=== PATIENT | female | born 1945 | race Caucasian/White ===

== ENCOUNTER → 2021-09-01 12:40 | Outpatient (CLI) | payer MEDICARE, SELFPAY ==
--- NOTE | 2021-09-01 | DI.MG.S_ITS ---
BILATERAL DIGITAL DIAGNOSTIC MAMMOGRAM 3D/2D: 09/01/2021 CLINICAL: Breast pain. Comparison is made to exams dated: 10/07/2014 mammogram, 03/21/2014 mammogram, and 03/12/2014 mammogram - [facility]. The tissue of both breasts is heterogeneously dense. This may lower the sensitivity of mammography. No significant new masses, calcifications, or other findings are seen in either breast. IMPRESSION: INCOMPLETE: NEEDS ADDITIONAL IMAGING EVALUATION There is no abnormality seen in the right breast to correspond with the nipple abnormality in the sub-areolar depth, however, ultrasound is recommended. There is no abnormality seen in the right axilla to correspond with the pain in the right axilla, however, ultrasound is recommended. Ultrasound will be performed immediately following the current exam. This exam was interpreted at Station ID: [id number]. NOTE: For mammograms, a report in lay terms will be sent to the patient. Approximately 15% of breast malignancies will not be visualized mammographically. In the management of a palpable breast mass, a negative mammogram must not discourage biopsy of a clinically suspicious lesion. Electronically Signed By: Christopher Rodriguez M.D. ddp/:09/01/2021 13:53:27 ACR BI-RADS Category 0: Incomplete [id number]
--- NOTE | 2021-09-01 | DI.RAD.S_ITS ---
PROCEDURE: XR DEXA AXIAL SKELETON INDICATIONS: Mastodynia COMPARISON: [facility], CR, DEXA AXIAL SKELETON, 03/12/2014, 9:21. FINDINGS: This blank DEXA report has been sent in error by the PACS system. The correct and complete report will be forthcoming in 1-2 days. Thank you for your patience and understanding. Dictated by: Lurdes Pradhan M.D. on 09/01/2021 at 16:20 Approved by: Lurdes Pradhan M.D. on 09/07/2021 at 14:01
--- NOTE | 2021-09-01 | DI.US.S_ITS ---
LIMITED ULTRASOUND OF RIGHT BREAST AND AXILLA: 09/01/2021 CLINICAL: Focal right breast and axilla pain. Comparison is made to exams dated: 09/01/2021 mammogram, 03/12/2014 mammogram, 07/23/2009 mammogram, and 05/03/2006 mammogram - [facility]. Real-time ultrasound of the right breast retroareolar and axilla regions was performed on the areas of interest. No discrete cystic or solid mass lesion identified in the areas of focal pain. IMPRESSION: NEGATIVE There is no sonographic evidence of malignancy. There is no abnormality seen in the right breast to correspond with the pain in the sub-areolar depth, however, clinical followup is recommended. There is no abnormality seen in the right axilla to correspond with the pain in the right axilla, however, clinical followup is recommended. A 1 year screening mammogram is recommended. This exam was interpreted at Station ID: [id number]. Electronically Signed By: Christopher mccann/:09/02/2021 12:45:24 letter sent: Clinical Evaluation Ultrasound BI-RADS: 1 Negative
== END ==
PROVIDERS: Family Provider Nurse Practitioner; PCP Nurse Practitioner Family; Referring Provider Nurse Practitioner Family; Visit Provider Nurse Practitioner Family
DX: N64.4 Mastodynia (principal); R92.8 Other abnormal and inconclusive findings on diagnostic imaging of breast; Z78.0 Asymptomatic menopausal state; M81.0 Age-related osteoporosis without current pathological fracture; M85.852 Other specified disorders of bone density and structure, left thigh; M85.851 Other specified disorders of bone density and structure, right thigh
CPT/HCPCS: 76642; 77066; 77080; G0279